=== PATIENT | male | born 1955 | race Caucasian/White ===

== ENCOUNTER 2018-02-28 12:20 | Inpatient (IN) | payer MEDICARE, OTHER ==
[~2018-02-28] VITALS: Ht 175.3 cm; Wt 83.0 kg
[2018-02-28] MEDS ORDERED: SODIUM CHLORIDE 0.9% 1,000 ML IV ONE (19:42)
[2018-02-28] MEDS: NITROGLYCERIN 0.4MG TABLET SL SL PRN ×3 (20:17→20:27)
[2018-02-28 20:23] LABS: BASOPHILS % 0.9 % (0.0-2.0); EOSINOPHILS % 1.4 % (0.0-5.0); HEMATOCRIT. 44.1 % (42.0-52.0); HEMOGLOBIN. 14.5 g/dL (14.0-18.0); LYMPHOCYTES % 20.6 % (20.0-50.0); MEAN CORPUSCULAR HEMOGLOBIN 31.3 pg (28.0-32.0); MEAN CORPUSCULAR VOLUME 95.4 fL (80.0-94.0); MEAN PLATELET VOLUME 10.6 fl (7.4-10.4); MONOCYTES % 6.5 % (2.0-8.0); NEUTROPHILS % 70.6 % (40.0-76.0); PLATELET 154 x1000/uL (130-400); RED BLOOD CELL COUNT 4.62 mill/uL (4.7-6.1); RED CELL DISTRIBUTION WIDTH 14.1 % (11.6-14.6)
[2018-02-28 20:28] LABS: CHLORIDE 110 mEq/L (98-107)
[2018-02-28 20:31] LABS: INR 1.2; PARTIAL THROMBOPLASTIN TIME 28.2 sec (23.4-31.0); PROTHROMBIN TIME 11.8 sec (9.1-11.1)
[2018-02-28 20:32] LABS: ETHANOL BLOOD < 10 mg/dL
[2018-02-28] MEDS ORDERED: SODIUM CHLORIDE 0.9% 1000ML BAG (SEPSIS BOLUS) IV ONE (21:45)
[2018-02-28] MEDS ORDERED: LEVOFLOXACIN 750MG PREMIX 150 ML IV ONE (21:45)
[2018-03-01] MEDS ORDERED: ASPIRIN 325MG EC TABLET PO ONE
[2018-03-01 00:38] LABS: CLARITY URINE CLEAR (CLEAR); COLOR URINE DARK YELLOW (YELLOW); KETONES URINE TRACE (NEGATIVE); LEUKOCYTE ESTERASE URINE NEGATIVE (NEGATIVE); NITRITE URINE NEGATIVE (NEGATIVE); OCCULT BLOOD URINE 2+ (NEGATIVE); PROTEIN URINE NEGATIVE (NEGATIVE); SPECIFIC GRAVITY URINE 1.023 (1.005-1.030); UROBILINOGEN URINE 0.2 E.U./dL (0.2-1.0)
[2018-03-01 00:57] LABS: *AMPHETAMINES SCREEN URINE NEGATIVE (NEGATIVE); *BARBITURATES SCREEN URINE NEGATIVE (NEGATIVE)
[2018-03-01 00:58] LABS: *BENZODIAZEPINES SCREEN URINE NEGATIVE (NEGATIVE); *COCAINE SCREEN URINE NEGATIVE (NEGATIVE); CANNABINOID URINE SCREEN NEGATIVE (NEGATIVE); METHADONE URINE SCREEN NEGATIVE (NEGATIVE); OPIATES URINE SCREEN NEGATIVE (NEGATIVE); PHENCYCLIDINE URINE SCREEN NEGATIVE (NEGATIVE)
[2018-03-01 03:17] VITALS: BP 104/66
[2018-03-01 04:00] VITALS: BP 132/70
[2018-03-01] MEDS ORDERED: LORAZEPAM 2MG/ML CPJ IV PRN ×2 (04:30→06:45)
[2018-03-01] MEDS ORDERED: HYDROCODONE/ACETAMINOPHEN 10/325MG TABLET PO PRN (04:30)
[2018-03-01] MEDS ORDERED: GUAIFENESIN 200MG/10ML SUGAR FREE UDC PO PRN ×2 (04:30→06:45)
[2018-03-01] MEDS ORDERED: DOCUSATE SODIUM 100MG CAPSULE PO PRN ×2 (04:30→06:45)
[2018-03-01] MEDS ORDERED: HYDROMORPHONE HCL/PF 2MG/ML CPJ IV PRN (04:30)
[2018-03-01] MEDS ORDERED: ACETAMINOPHEN 325MG TABLET PO PRN ×2 (04:30→06:45)
[2018-03-01] MEDS ORDERED: HYDRALAZINE 20MG/ML VIAL IV PRN (04:30)
[2018-03-01] MEDS ORDERED: ONDANSETRON HCL 4MG/2ML INJ IV PRN ×2 (04:30→06:45)
[2018-03-01] MEDS ORDERED: MAGNESIUM/ALUMINUM HYDROXIDE/SIMETHICONE 30ML UDC PO PRN ×2 (04:30→06:45)
[2018-03-01] MEDS ORDERED: CLONIDINE 0.1MG TABLET PO PRN ×2 (04:30→06:45)
[2018-03-01] MEDS ORDERED: DIPHENHYDRAMINE 50MG/ML VIAL IV PRN ×2 (04:30→06:45)
[2018-03-01] MEDS ORDERED: IPRATROPIUM/ALBUTEROL 0.5-3(2.5)MG/3ML NEB INH PRN ×2 (04:30→06:45)
[2018-03-01] MEDS ORDERED: HYDROCODONE/ACETAMINOPHEN 5/325MG TABLET PO PRN (06:45)
[2018-03-01] MEDS ORDERED: ENOXAPARIN 40MG/0.4ML SYR SUBCUT SCH (06:45)
[2018-03-01] MEDS ORDERED: LEVOFLOXACIN 500MG PREMIX 100 ML IV SCH (06:45)
[2018-03-01] MEDS ORDERED: NA PHOS,M-B/NA PHOS,DI-BA ENEMA 118ML PR PRN (06:45)
[2018-03-01] MEDS ORDERED: ASPIRIN 81MG EC TABLET PO SCH ×2 (09:00)
[2018-03-01] MEDS: ENOXAPARIN 40MG/0.4ML SYR SUBCUT SCH (10:09)
[2018-03-01 12:00] VITALS: BP 158/84
[2018-03-01 12:51] LABS: CHLORIDE 111 mEq/L (98-107)
[2018-03-01] MEDS: SODIUM CHLORIDE 0.9% INJ 3ML FLUSH IVF SCH (14:00)
[2018-03-01 16:00] VITALS: BP_SYST 115; BP_SYST 126; BP_DIAS 64; BP_DIAS 82
[2018-03-01 18:57] LABS: CREATINE KINASE 141 IU/L (39-308)
[2018-03-01 18:58] LABS: CREATINE KINASE MB FRACTION 1.5 ng/mL (0.5-3.6)
[2018-03-01 20:00] VITALS: BP 128/80
[2018-03-02 04:00] VITALS: BP 125/70
[2018-03-02] MEDS: LEVOFLOXACIN 500MG PREMIX 100 ML IV SCH ×2 (06:52→06:55)
[2018-03-02] MEDS: SODIUM CHLORIDE 0.9% INJ 3ML FLUSH IVF SCH ×4 (06:54→20:52)
[2018-03-02 07:05] LABS: CHLORIDE 111 mEq/L (98-107)
[2018-03-02 07:08] LABS: BASOPHILS % 0.5 % (0.0-2.0); EOSINOPHILS % 4.5 % (0.0-5.0); HEMATOCRIT. 48.1 % (42.0-52.0); HEMOGLOBIN. 16.1 g/dL (14.0-18.0); LYMPHOCYTES % 26.6 % (20.0-50.0); MEAN CORPUSCULAR HEMOGLOBIN 31.6 pg (28.0-32.0); MEAN CORPUSCULAR VOLUME 94.4 fL (80.0-94.0); MEAN PLATELET VOLUME 10.7 fl (7.4-10.4); MONOCYTES % 8.5 % (2.0-8.0); NEUTROPHILS % 59.9 % (40.0-76.0); PLATELET 143 x1000/uL (130-400); RED CELL DISTRIBUTION WIDTH 14.1 % (11.6-14.6)
[2018-03-02 07:25] LABS: LDL CHOLESTEROL 109 mg/dL (5-100)
[2018-03-02 07:27] LABS: HDL CHOLESTEROL 31 mg/dL (40-59); T4 FREE 1.11 ng/dL (0.76-1.46)
[2018-03-02 07:30] VITALS: BP 144/72
[2018-03-02 07:38] VITALS: BP 144/72
[2018-03-02] MEDS: ASPIRIN 81MG TABLET PO SCH (09:15)
[2018-03-02] MEDS: ENOXAPARIN 40MG/0.4ML SYR SUBCUT SCH (09:15)
[2018-03-02 11:56] VITALS: BP 138/74
[2018-03-02] MEDS: MORPHINE SULFATE 4 MG/ML CPJ (NOT FOR IM USE) IV PRN ×2 (12:41→19:07)
[2018-03-02] MEDS ORDERED: IOHEXOL-350 100 ML BOTTLE ONE (13:54)
[2018-03-02 16:00] VITALS: BP 133/69
[2018-03-02 20:00] VITALS: BP 129/74
[2018-03-03] VITALS: BP 135/66
[2018-03-03 04:00] VITALS: BP 144/70
[2018-03-03] MEDS: SODIUM CHLORIDE 0.9% INJ 3ML FLUSH IVF SCH ×3 (06:00→21:34)
[2018-03-03 08:00] VITALS: BP 132/72
[2018-03-03] MEDS: ASPIRIN 81MG TABLET PO SCH (09:00)
[2018-03-03] MEDS: LEVOFLOXACIN 500MG TABLET PO SCH (10:52)
[2018-03-03 12:00] VITALS: BP 146/87
[2018-03-03 16:00] VITALS: BP 142/76
[2018-03-03] MEDS: MORPHINE SULFATE 4 MG/ML CPJ (NOT FOR IM USE) IV PRN (16:29)
[2018-03-03 20:00] VITALS: BP 148/60
[2018-03-04] MEDS: SODIUM CHLORIDE 0.9% INJ 3ML FLUSH IVF SCH ×3 (06:00→20:58)
[2018-03-04 06:59] LABS: CHLORIDE 105 mEq/L (98-107)
[2018-03-04 07:04] LABS: EOSINOPHILS % 5.1 % (0.0-5.0); HEMATOCRIT. 47.5 % (42.0-52.0); HEMOGLOBIN. 16.1 g/dL (14.0-18.0); LYMPHOCYTES % 27.2 % (20.0-50.0); MEAN CORPUSCULAR VOLUME 94.6 fL (80.0-94.0); MEAN PLATELET VOLUME 10.7 fl (7.4-10.4); MONOCYTES % 8.2 % (2.0-8.0); NEUTROPHILS % 58.5 % (40.0-76.0); PLATELET 139 x1000/uL (130-400); RED BLOOD CELL COUNT 5.02 mill/uL (4.7-6.1); RED CELL DISTRIBUTION WIDTH 13.9 % (11.6-14.6)
[2018-03-04 08:42] VITALS: BP 167/74
[2018-03-04] MEDS: CLOPIDOGREL 75MG TABLET PO SCH (09:00)
[2018-03-04] MEDS: ASPIRIN 81MG TABLET PO SCH (09:00)
[2018-03-04] MEDS: MORPHINE SULFATE 4 MG/ML CPJ (NOT FOR IM USE) IV PRN (09:00)
[2018-03-04] MEDS: LEVOFLOXACIN 500MG TABLET PO SCH (11:24)
[2018-03-04 12:00] VITALS: BP 151/71
[2018-03-04 16:30] VITALS: BP 142/68
[2018-03-04 20:00] VITALS: BP 131/61
[2018-03-05] VITALS: BP 107/58
[2018-03-05 04:00] VITALS: BP 147/66
[2018-03-05] MEDS: SODIUM CHLORIDE 0.9% INJ 3ML FLUSH IVF SCH ×3 (05:12→21:37)
[2018-03-05 08:00] VITALS: BP 132/62
[2018-03-05] MEDS: CLOPIDOGREL 75MG TABLET PO SCH (09:23)
[2018-03-05] MEDS: ASPIRIN 81MG TABLET PO SCH (09:23)
[2018-03-05] MEDS: MORPHINE SULFATE 4 MG/ML CPJ (NOT FOR IM USE) IV PRN ×2 (10:52→21:36)
[2018-03-05] MEDS: LEVOFLOXACIN 500MG TABLET PO SCH (11:45)
[2018-03-05 12:00] VITALS: BP 141/68
[2018-03-05 16:53] VITALS: BP 139/76
[2018-03-05 20:00] VITALS: BP 131/70
[2018-03-06 04:00] VITALS: BP 130/54
[2018-03-06] MEDS: SODIUM CHLORIDE 0.9% INJ 3ML FLUSH IVF SCH ×2 (05:22→12:40)
[2018-03-06 08:00] VITALS: BP 110/65
[2018-03-06] MEDS ORDERED: MORPHINE SULFATE 4 MG/ML CPJ (NOT FOR IM USE) IV PRN (10:15)
[2018-03-06] MEDS ORDERED: HYDROCODONE/ACETAMINOPHEN 10/325MG TABLET PO PRN (10:15)
[2018-03-06] MEDS: CLOPIDOGREL 75MG TABLET PO SCH (10:25)
[2018-03-06] MEDS: ASPIRIN 81MG TABLET PO SCH (10:25)
[2018-03-06] MEDS: LEVOFLOXACIN 500MG TABLET PO SCH (10:25)
[2018-03-06 12:00] VITALS: BP 114/78
[2018-03-06 16:00] VITALS: BP 137/71
[2018-03-06 16:07] VITALS: BP 137/71
== END 2018-03-06 18:48 | disposition home or self-care (01) | DRG 194 ==
LOC: ER 12:20 → 8WST 03-01 00:43 → EDBEDREQTM 03-01 00:50 → EDBEDREQ 03-01 00:50 → EDBEDREQDT 03-01 00:50 → ENRESERV 03-01 01:50 → EDBEDREQ 03-01 02:07 → 8WST 03-01 15:22
PROVIDERS: ADMIT Internal Medicine; ATTEND Internal Medicine
DX: J18.9 Pneumonia, unspecified organism (principal); R65.10 Systemic inflammatory response syndrome (SIRS) of non-infectious origin without acute organ dysfunction; E46 Unspecified protein-calorie malnutrition; N39.0 Urinary tract infection, site not specified; E87.2 Acidosis; I10 Essential (primary) hypertension; R31.21 Asymptomatic microscopic hematuria; F17.200 Nicotine dependence, unspecified, uncomplicated; I25.10 Atherosclerotic heart disease of native coronary artery without angina pectoris; Z95.5 Presence of coronary angioplasty implant and graft; I25.2 Old myocardial infarction; Z86.73 Personal history of transient ischemic attack (TIA), and cerebral infarction without residual deficits; Z68.27 Body mass index [BMI] 27.0-27.9, adult
CPT/HCPCS: 36415; 71045; 71275; 74176; 80048; 80061; 80305; 82550; 82553; 83036; 83605; 83880; 84439; 84443; 84484; 85379; 93005; 93306; 93970; 99285; G0482; J1200; J1650; J1956; J2270; J2405; J7030; J7050; Q9967